=== PATIENT | female | born 1950 | race Caucasian/White ===

== ENCOUNTER 2017-12-05 19:26 | Emergency (ER) | payer OTHER ==
[~2017-12-05] VITALS: Ht 160 cm; Wt 64.2 kg
[2017-12-05 20:01] LABS: HEMATOCRIT 34.1 % (36.0-46.0); HEMOGLOBIN 11.4 G/DL (11.9-15.5); MCH 28.1 PG (29.0-34.0); MCHC 33.4 G/DL (30.0-36.0); MCV 84.2 FL (83-99); PLATELET COUNT 232 K/uL (156-360); RBC DIS.WIDTH-SD 39.9 % (39-53); RED BLOOD COUNT 4.05 M/uL (3.80-5.20); WHITE BLOOD COUNT 5.8 K/uL (4.1-10.2)
[2017-12-05 20:15] LABS: CHLORIDE 106 mEq/L (99-109); POTASSIUM 3.7 mEq/L (3.7-5.4); SODIUM 140 mEq/L (136-147)
[2017-12-05 20:17] LABS: GLUCOSE 102 mg/dL (70-99)
[2017-12-05 20:20] LABS: CREATININE 0.8 mg/dL (0.6-1.3); GFR ESTIMATE (CALCULATED) > 59 mL/min/
[2017-12-05 20:21] LABS: UREA NITROGEN (BUN) 17 mg/dL (9-23)
[2017-12-05 21:09] LABS: ALBUMIN 4.3 g/dL (3.2-4.8)
[2017-12-05 21:12] LABS: TOTAL PROTEIN 7.7 g/dL (6.4-8.3)
[2017-12-05 21:14] LABS: TOTAL BILIRUBIN 0.3 mg/dL (0.0-1.0)
[2017-12-05 21:15] LABS: ALKALINE PHOSPHATASE 82 IU/L (3-129)
[2017-12-05 21:17] LABS: AST (GOT) 18 IU/L (2-34); DIRECT BILIRUBIN 0.1 mg/dL (0.0-0.3)
[2017-12-05 21:18] LABS: ALT (GPT) 12 IU/L (3-49)
[2017-12-05 21:44] LABS: TROP-I INTERPRETATION NEGATIVE; TROPONIN-I < 0.01 ng/mL (0.0-0.30)
[2017-12-05] MEDS ORDERED: ANTIVERT25 MG PO (22:07)
[2017-12-05] MEDS ORDERED: ZOFRAN ODT4 MG PO (22:07)
[2017-12-05] MEDS ORDERED: VALIUM5 MG PO (22:07)
[2017-12-05 22:37] VITALS: BP 124/67
== END 2017-12-05 22:38 | disposition home or self-care (01) ==
LOC: EME 19:26
PROVIDERS: Emergency Medicine
DX: H81.10 Benign paroxysmal vertigo, unspecified ear (principal); R11.2 Nausea with vomiting, unspecified; R51 Headache; H91.91 Unspecified hearing loss, right ear; Z88.0 Allergy status to penicillin; Z87.891 Personal history of nicotine dependence
CPT/HCPCS: 70450; 71046; 80048; 80076; 84484; 85027; 93005; 99281; 99285; J2405; J7040